=== PATIENT | male | born 1955 | race Caucasian/White ===

== ENCOUNTER 2017-03-13 03:58 | Emergency (ER) | payer OTHER ==
[~2017-03-13] VITALS: Ht 180.3 cm; Wt 83.4 kg
[~2017-03-13 03:58] MED LIST: ACLOVATE0.05 % EX; DOXYCYCL HYC100 M4 PO; PREVACID30 M2 PO; ZOFRAN ODT4 MG PO
[2017-03-13] MEDS ORDERED: PERCOCET 5/325M1 TAB PO (04:30)
[2017-03-13] MEDS ORDERED: TIZANIDINE HCL4 M1 PO (04:32)
[2017-03-13 05:13] VITALS: BP 128/74
== END 2017-03-13 05:14 | disposition home or self-care (01) | DRG 103 ==
LOC: ED 03:58
DX: G44.319 Acute post-traumatic headache, not intractable (principal); Z98.890 Other specified postprocedural states; V29.9XXD Motorcycle rider (driver) (passenger) injured in unspecified traffic accident, subsequent encounter

== ENCOUNTER 2022-01-15 16:16 | Inpatient (IN) | payer BC ==
[~2022-01-15] VITALS: Ht 180.3 cm; Wt 91.0 kg
[~2022-01-15 16:16] MED LIST changes: +PERCOCET 5/325M1 TAB PO; +TIZANIDINE HCL4 M1 PO
[2022-01-15 17:43] LABS: HEMATOCRIT 39.9 % (39.0-50.0); HEMOGLOBIN 13.5 g/dl (14.0-18.0); IMMATURE GRANULOCYTES 0.3 % (0.0-5.0); MEAN CELL VOLUME 97.6 fL CALC (80.0-100.0); MEAN CORPUSCULAR HGB CONC 33.8 g/dL CAL (32.0-36.0); NEUT# 4.28 thou/uL (1.82-7.42); RED BLOOD COUNT 4.09 mill/uL (4.70-6.10)
[2022-01-15 17:57] LABS: ALBUMIN 4.6 g/dL (3.2-5.0); ALKALINE PHOSPHATASE 68 u/l (38-126); ANION GAP 13 (6-22 (CALC)); BILIRUBIN, TOTAL 0.4 mg/dL (0.0-1.4); BUN 16 mg/dL (8-23); BUN/CREATININE RATIO 21 (12-20 (CALC)); CHLORIDE 102 mmol/l (95-108); CREATININE 0.8 mg/dL (0.7-1.3); GFR FOR AFR.AMER. > 60 ML/MIN (>=60 (CALC)); GFR OTHER RACES > 60 ML/MIN (>=60 (CALC)); POTASSIUM 4.2 mmol/l (3.5-5.1); SGOT/AST 26 u/l (19-48); SODIUM 141 mmol/l (137-146); TOTAL PROTEIN 7.4 g/dL (6.3-8.2)
[2022-01-15 18:02] LABS: CARBON DIOXIDE 30 mmol/l (22-30)
[2022-01-15 19:02] VITALS: BP 141/78
[2022-01-16] VITALS (10 sets, daily range): BP systolic 123–169; BP diastolic 71–94
[2022-01-16] MEDS ORDERED: LORTAB 1010 MG PO (10:39)
[2022-01-17] VITALS (7 sets, daily range): BP systolic 133–155; BP diastolic 78–91
[2022-01-17 09:03] LABS: URINE BILIRUBIN - DIPSTICK NEGATIVE (NEGATIVE); URINE BLOOD DIPSTICK NEGATIVE (NEGATIVE); URINE COLOR YELLOW; URINE GLUCOSE - DIPSTICK 100 mg/dL (NEGATIVE); URINE KETONE NEGATIVE (NEGATIVE); URINE LEUK ESTERASE NEGATIVE (NEGATIVE); URINE NITRITE - DIPSTICK NEGATIVE (Negative); URINE PROTEIN - DIPSTICK NEGATIVE (NEG-TRACE); URINE SPECIFIC GRAVITY 1.015; URINE UROBILINOGEN - DIPSTICK 0.2 E.U./dL (0.2)
[2022-01-18 05:26] VITALS: BP 152/86
[2022-01-18 06:24] LABS: HEMATOCRIT 37.5 % (39.0-50.0); HEMOGLOBIN 13.1 g/dl (14.0-18.0); MEAN CELL VOLUME 95.9 fL CALC (80.0-100.0); MEAN CORPUSCULAR HGB 33.5 pG CALC (26.0-32.0); MEAN CORPUSCULAR HGB CONC 34.9 g/dL CAL (32.0-36.0); RED BLOOD COUNT 3.91 mill/uL (4.70-6.10); RED CELL DISTRI WIDTH 12.9 % (11.5-15.5)
[2022-01-18 06:47] LABS: ANION GAP 13 (6-22 (CALC)); BUN 14 mg/dL (8-23); BUN/CREATININE RATIO 19 (12-20 (CALC)); CARBON DIOXIDE 26 mmol/l (22-30); CHLORIDE 105 mmol/l (95-108); CREATININE 0.8 mg/dL (0.7-1.3); GFR FOR AFR.AMER. > 60 ML/MIN (>=60 (CALC)); GFR OTHER RACES > 60 ML/MIN (>=60 (CALC)); MAGNESIUM 2.3 mg/dL (1.6-2.3); POTASSIUM 3.9 mmol/l (3.5-5.1); SODIUM 139 mmol/l (137-146)
[2022-01-18 06:52] VITALS: BP 148/83
[2022-01-18 10:58] VITALS: BP 128/70
[2022-01-18 15:45] VITALS: BP 122/65
[2022-01-18 19:35] VITALS: BP 107/55
[2022-01-19 04:00] VITALS: BP 107/55
[2022-01-19 05:06] VITALS: BP 107/55
[2022-01-19 07:10] VITALS: BP 118/46
[2022-01-19 10:00] VITALS: BP 129/64
[2022-01-19] MEDS ORDERED: ZYVOX600 MG PO (12:19)
[2022-01-19] MEDS ORDERED: LEVAQUIN750 M1 PO (12:19)
[2022-01-19] MEDS ORDERED: LORTAB 1010 MG PO (12:21)
[2022-01-19] MEDS ORDERED: NICODERM C21 MG/242 TD (12:21)
== END 2022-01-19 14:10 | disposition home or self-care (01) | DRG 902 ==
LOC: MS2 16:16
PROVIDERS: ADMIT Internal Medicine; ATTEND Internal Medicine
PROC: 0JBR0ZZ Excision of Left Foot Subcutaneous Tissue and Fascia, Open Approach (ICD-10-PCS; principal; 2022-01-16)
DX: T81.31XA Disruption of external operation (surgical) wound, not elsewhere classified, initial encounter (principal); T81.41XA Infection following a procedure, superficial incisional surgical site, initial encounter; L03.116 Cellulitis of left lower limb; M19.072 Primary osteoarthritis, left ankle and foot; F17.200 Nicotine dependence, unspecified, uncomplicated; B95.61 Methicillin susceptible Staphylococcus aureus infection as the cause of diseases classified elsewhere; B96.89 Other specified bacterial agents as the cause of diseases classified elsewhere; Z88.0 Allergy status to penicillin; Z98.1 Arthrodesis status; Z91.19 Patient's noncompliance with other medical treatment and regimen; Y83.8 Other surgical procedures as the cause of abnormal reaction of the patient, or of later complication, without mention of misadventure at the time of the procedure
CPT/HCPCS: J0131; J1650; J2020; J3370; Q3014; S0073